=== PATIENT | female | born 1995 | race Caucasian/White ===

== ENCOUNTER 2018-06-24 17:59 | Emergency (ER) | payer BC, MEDICAID ==
[2018-06-24] MEDS ORDERED: HYOSCYAMINE SULFATE ODT 0.125 MG TAB.SUBL SL ONE (18:17)
[2018-06-24] MEDS ORDERED: ONDANSETRON HCL IV 4 MG/2 ML VIAL IVP ONE (18:17)
--- NOTE | 2018-06-24 18:21 | Emergency Department Record ---
History of Present Illness - General Stated Complaint: ABDOMINAL PAIN,NAUSEA Time Seen by Provider: 06/24/18 18:17 Source: Patient Mode of Arrival: Ambulatory Limitations: No limitations - History of Present Illness Initial Comments: 22 yo female presents to ED for evaluation of diffuse abdominal pain and nausea symptoms that began this morning. Patient denies fevers, chills, flank pain, or urinary symptoms. Patient denies vomiting symptoms but does repot several episodes of loose stools yesterday. Patient denies previous abdominal surgeries, does report a history of RA that she does not currently take any medications for. MD Complaint: Abdominal pain Onset/Timin -: Days(s) Location: Diffuse Radiation: None Severity: Moderate Quality: Cramping Consistency: Constant Improves With: Nothing Worsens With: Nothing Associated Symptoms: Nausea - Related Data Patient : No Home Medications Medication Instructions Recorded Confirmed Last Taken Amitriptyline HCl 25 mg PO DAILY 06/24/18 06/24/18 06/24/18 Previous Rx's Medication Instructions Recorded Hyoscyamine Sulfate [Levsin-Sl] 0.25 mg SL Q8H PRN #15 tab.subl 06/24/18 Ondansetron [Zofran Odt] 4 mg PO Q6H PRN #15 tab.rapdis 06/24/18 Allergies Allergy/AdvReac Type Severity Reaction Status Date / Time Sulfa (Sulfonamide Allergy SWOLLEN Verified 06/24/18 18:53 Antibiotics) EYES Review of Systems Constitutional: Denies: Chills, Fever, Malaise, Night sweats Eyes: Denies: Eye discharge, Eye pain ENT: Denies: Congestion, Ear pain, Epistaxis Respiratory: Denies: Cough, Dyspnea Cardiovascular: Denies: Chest pain, Dyspnea on exertion Endocrine: Denies: Fatigue, Heat or cold intolerance Gastrointestinal: Reports: Abdominal pain, Nausea. Denies: Constipation, Vomiting Genitourinary: Denies: Incontinence, Retention Musculoskeletal: Denies: Arthralgia, Back pain Skin: Denies: Bruising, Change in color Neurological: Denies: Abnormal gait, Confusion, Headache Psychiatric: Denies: Anxiety Hematological/Lymphatic: Denies: Anemia, Blood Clots Physical Exam - General General Appearance: Alert, Oriented x3, Cooperative, Moderate distress Limitations: No limitations - Head Head exam: Atraumatic, Normocephalic, Normal inspection Head exam detail: negative: Abrasion, Contusion, Moreno's sign, General tenderness, Hematoma, Laceration - Eye Eye exam: Normal appearance. negative: Conjunctival injection, Periorbital swelling, Periorbital tenderness, Scleral icterus - ENT Ear exam: negative: Auricular hematoma, Auricular trauma Nasal Exam: negative: Active bleeding, Discharge, Dried blood, Foreign body Mouth exam: negative: Drooling, Laceration, Muffled voice, Tongue elevation - Neck Neck exam: Normal inspection. negative: Meningismus, Tenderness - Respiratory Respiratory exam: Normal lung sounds bilaterally. negative: Respiratory distress, Rhonchi, Stridor, Wheezes - Cardiovascular Cardiovascular Exam: Regular rate, Normal rhythm, Normal heart sounds - GI/Abdominal GI/Abdominal exam: Soft, Tenderness (TTP RUQ, RLQ, and epigastric regions on examination.). negative: Rebound, Rigid - Rectal Rectal exam: Deferred - exam: Deferred - Extremities Extremities exam: Normal inspection. negative: Calf tenderness, Pedal edema, Tenderness - Back Back exam: Denies: CVA tenderness (R), CVA tenderness (L) - Neurological Neurological exam: Alert, Normal gait, Oriented X3 - Psychiatric Psychiatric exam: Normal affect, Normal mood - Skin Skin exam: Normal color. negative: Abrasion Type of lesion: negative: abrasion Course - Reevaluation(s) Reevaluation #1: 06/24/18 19:26 Laboratory studies were reviewed and appear grossly unremarkable for an acute process. Patient reports that her nausea symptoms have resolved, reports that her abdominal pain symptoms are significantly improved. CT imaging is pending at this time. Reevaluation #2: 06/24/18 19:45 CT Abdomen and Pelvis: Probable gallstones No evidence for acute cholecystitis Dominant cyst (2.9 cm) left IUD in place. Patient was updated on all results, patient reports that her pain symptoms are well controlled at this time. Will have the patient return tomorrow morning at 8:30 for 9:00 US of the abdomen for further evaluation. Patient is in agreement with the plan of care as discussed. Medical Decision Making - Lab Data Result diagrams: 06/24/18 18:37 06/24/18 18:37 Disposition Disposition: Discharge Clinical Impression: Abdominal pain Qualifiers: Abdominal location: right lower quadrant Qualified Code(s): R10.31 - Right lower quadrant pain Disposition: Home, Self-Care Condition: (2) Stable Instructions: Abdominal Pain (ED) Additional Instructions: Return to ED if your symptoms worsen or if you have any concerns. Zofran and Levsin as directed. Follow-up with your family doctor in 3-5 days as directed. Prescriptions: Hyoscyamine Sulfate [Levsin-Sl] 0.25 mg SL Q8H PRN #15 tab.subl PRN Reason: Abdominal Pain Ondansetron [Zofran Odt] 4 mg PO Q6H PRN #15 tab.rapdis PRN Reason: Nausea/Vomiting Time of Disposition: 19:48 Quality - Quality Measures Quality Measures: N/A - Blood Pressure Screening Does Patient Have Any of the Following: No Blood Pressure Classification: Normal BP Reading Systolic Measurement: 114 Diastolic Measurement: 63 Screening for High Blood Pressure: < Normal BP, F/U Not Required > [G8783]
[2018-06-24] MEDS ORDERED: 0.9 % SODIUM CHLORIDE 1000ML 1,000 ML IV SCH (18:30)
[2018-06-24 18:45] LABS: HEMATOCRIT 39.5 % (35.0-47.0); HEMOGLOBIN 13.9 gm/dl (11.6-16.0); MEAN CELL VOLUME 91.6 fl (81-97); MEAN CORPUSCULAR HEMOGLOBIN 32.3 pg (27-33); MEAN CORPUSCULAR HGB CONC 35.2 g/dl (32-36); MEAN PLATELET VOLUME 9.2 fl (7.4-10.4); PLATELET COUNT 258 K/uL (130-400); RED BLOOD COUNT 4.31 M/uL (3.80-5.40); RED CELL DISTRIBUTION WIDTH 11.6 % (11.5-14.5)
[2018-06-24 18:53] LABS: URINE APPEARANCE SL CLOUDY; URINE BILIRUBIN NEGATIVE (NEGATIVE); URINE BLOOD MODERATE (NEGATIVE); URINE COLOR YELLOW; URINE GLUCOSE (UA) NEGATIVE (NEGATIVE); URINE KETONE 15 mg/dL (NEGATIVE); URINE LEUKOCYTE ESTERASE TRACE (NEGATIVE); URINE NITRITE NEGATIVE (NEGATIVE); URINE PROTEIN NEGATIVE (NEGATIVE); URINE UROBILINOGEN 0.2 E.U./dL (0.20 - 1.00)
[2018-06-24 18:54] LABS: HCG,QUALITATIVE URINE NEGATIVE (NEGATIVE)
[2018-06-24 19:02] LABS: URINE BACTERIA 1+; URINE MUCUS LIGHT; URINE WBC 0 - 2 (0-2/hpf)
[2018-06-24 19:16] LABS: BLOOD UREA NITROGEN 9 mg/dL (6-20); CREATININE 0.5 mg/dL (0.5-0.9); EST GLOMERULAR FILTRATION RATE > 60 mL/min
[2018-06-24 19:17] LABS: TOTAL PROTEIN 7.9 g/dL (6.6-8.7)
[2018-06-24 19:19] LABS: GLUCOSE,RANDOM 103 mg/dL (74-109)
[2018-06-24 19:22] LABS: ALB/GLOB RATIO 1.5 (1.1-1.8); ALBUMIN 4.7 g/dL (4.0-5.0); ALKALINE PHOSPHATASE 46 U/L (35-104); ALT/SGPT 12 U/L (<33); AST/SGOT 15 U/L (10.0-35.0); LIPASE 33 U/L (13-60)
--- NOTE | 2018-06-25 20:32 | CT SCAN REPORT ---
EXAM: CT SCAN ABDOMEN/PELVIS W CONTRAST HISTORY: ABDOMINAL PAIN. TECHNIQUE: Helical CT scan of the abdomen and pelvis obtained after the administration of intravenous contrast, the type and amount specified in the patient's medical record. Oral contrast: None. COMPARISON: None. FINDINGS: Lung bases are clear. Liver, spleen, pancreas, adrenal glands are within normal limits. There is a linear area of hypodensity in the posterior lower right kidney, possibly a scar or focal inflammation. Left kidney is unremarkable. Normal contrast excretion in both kidneys. There are some densities in the gallbladder, which are probably stones. No abnormal gallbladder wall thickening. Common bile duct is not dilated, 3 mm. Bowel has normal caliber. Appendix is normal. A dominant follicle in the left ovary is 2.9 cm. The uterus is retroverted and an intrauterine device is present in appropriate position. Tiny amount of physiologic fluid in the pelvis. Bony structures and abdominal wall are unremarkable. IMPRESSION: 1. NO ACUTE ABNORMALITIES ARE IDENTIFIED IN THE ABDOMEN AND PELVIS. 2. LINEAR ABNORMALITY IN THE RIGHT KIDNEY MAY REPRESENT AN AREA OF INFLAMMATION VS. SCAR, CORRELATE WITH URINALYSIS. 3. PROBABLE GALLSTONES, CONSIDER CORRELATION WITH ULTRASOUND. 4. FINDINGS OF RECENT OVULATION FROM THE LEFT OVARY. JOB NUMBER: [id number] [facility]
== END 2018-06-24 19:59 | disposition home or self-care (01) ==
LOC: ER 17:59
DX: R10.31 Right lower quadrant pain (principal); R11.0 Nausea; M06.9 Rheumatoid arthritis, unspecified
CPT/HCPCS: 99284 ×2; 96374; 83690; 80053; 81001; 81025; 85027; 74177; Q9967; J1980; J2405; J7030

== ENCOUNTER 2018-06-25 08:14 | Emergency (ER) | payer BC, MEDICAID ==
[2018-06-25] MEDS ORDERED: HYOSCYAMINE SULFATE ODT 0.125 MG TAB.SUBL SL ONE (09:40)
[2018-06-25] MEDS ORDERED: MAGNESIUM HYDROXIDE/AL HYDROX 30 ML, LIDOCAINE VISC 2% 15ML 15 ML PO ONE ×2 (10:34)
--- NOTE | 2018-06-25 11:22 | Emergency Department Record ---
History of Present Illness - General Chief Complaint: Abdominal Pain Stated Complaint: ULTRASOUND Time Seen by Provider: 06/25/18 08:24 Source: Patient Mode of Arrival: Ambulatory Limitations: No limitations - History of Present Illness Initial Comments: pt here for [facility] after being seen by dr saeed in night. pt is still having pain MD Complaint: Abdominal pain Onset/Timin -: Days(s) Location: Epigastric Severity scale (1-10): 7 Improves With: Medication Worsens With: Nothing Associated Symptoms: Nausea - Related Data Patient : No Previous Rx's Medication Instructions Recorded Hyoscyamine Sulfate [Levsin-Sl] 0.25 mg SL Q8H PRN #15 tab.subl 06/24/18 Ondansetron [Zofran Odt] 4 mg PO Q6H PRN #15 tab.rapdis 06/24/18 Omeprazole [Prilosec] 20 mg PO DAILY #20 cap. 06/25/18 Allergies Allergy/AdvReac Type Severity Reaction Status Date / Time Sulfa (Sulfonamide Allergy SWOLLEN Verified 06/25/18 08:22 Antibiotics) EYES Travel Screening - Travel/Exposure Within Last 30 Days Have you traveled within the last 30 days?: No - Travel/Exposure Within Last Year Have you traveled outside the [place] in the last year?: No - Additonal Travel Details Have you been exposed to anyone with a communicable illness?: No - Travel Symptoms Symptom Screening: None Review of Systems Reviewed: No additional complaints except as noted below Constitutional: Reports: As per HPI. Denies: Chills, Fever, Malaise, Night sweats, Weakness, Weight change Eyes: Reports: As per HPI. Denies: Eye discharge, Eye pain, Photophobia, Vision change ENT: Reports: As per HPI. Denies: Congestion, Dental pain, Ear pain, Epistaxis , Hearing loss, Throat pain Respiratory: Reports: As per HPI. Denies: Cough, Dyspnea, Hemoptysis, Stridor, Wheezes Cardiovascular: Reports: As per HPI. Denies: Arrhythmia, Chest pain, Dyspnea on exertion, Edema, Murmurs, Orthopnea, Palpitations, Paroxysmal nocturnal dyspnea, Rheumatic Fever, Syncope Endocrine: Reports: As per HPI. Denies: Fatigue, Heat or cold intolerance, Polydipsia, Polyuria Gastrointestinal: Reports: As per HPI, Abdominal pain. Denies: Constipation, Diarrhea, Hematemesis, Hematochezia, Melena, Nausea, Vomiting Genitourinary: Reports: As per HPI. Denies: Abnormal menses, Discharge, Dyspareunia, Dysuria, Frequency, Hematuria, Incontinence, Retention, Urgency Musculoskeletal: Reports: As per HPI. Denies: Arthralgia, Back pain, Gout, Joint swelling, Myalgia, Neck pain Skin: Reports: As per HPI. Denies: Bruising, Change in color, Change in hair/ nails, Lesions, Pruritus, Rash Neurological: Reports: As per HPI. Denies: Abnormal gait, Confusion, Headache, Numbness, Paresthesias, Seizure, Tingling, Tremors, Vertigo, Weakness Psychiatric: Reports: As per HPI. Denies: Anxiety, Auditory hallucinations, Depression, Homicidal thoughts, Suicidal thoughts, Visual hallucinations Hematological/Lymphatic: Reports: As per HPI. Denies: Anemia, Blood Clots, Easy bleeding, Easy bruising, Swollen glands Past Medical History - SOCIAL HISTORY Smoking Status: Never smoker Alcohol Use: None Drug Use: None - RESPIRATORY Hx Respiratory Disorders: No - CARDIOVASCULAR Hx Cardio Disorders: No Comment:: murmur - NEURO Hx Neuro Disorders: No - GI Hx GI Disorders: No - Hx Genitourinary Disorders: Yes Hx UTI: Yes - ENDOCRINE Hx Endocrine Disorders: No - MUSCULOSKELETAL Hx Musculoskeletal Disorders: Yes Comment:: RA - PSYCH Hx Psych Problems: Yes Hx Anxiety: Yes - HEMATOLOGY/ONCOLOGY Hx Hematology/Oncology Disorders: No Family Medical History Any Significant Family History?: No Physical Exam - General General Appearance: Alert, Oriented x3, Cooperative, Mild distress - Head Head exam: Normal inspection - Eye Eye exam: Normal appearance, PERRL, EOMI Pupils: Normal accommodation - ENT ENT exam: Normal exam, Mucous membranes moist, Normal external ear exam, Normal orophraynx Ear exam: Normal external inspection. negative: External canal tenderness Nasal Exam: Normal inspection. negative: Discharge, Sinus tenderness Mouth exam: Normal external inspection, Tongue normal Teeth exam: Normal inspection. negative: Dental caries Throat exam: Normal inspection. negative: Tonsillar erythema, Tonsillar exudate - Neck Neck exam: Normal inspection, Full ROM. negative: Tenderness - Respiratory Respiratory exam: Normal lung sounds bilaterally. negative: Respiratory distress - Cardiovascular Cardiovascular Exam: Regular rate, Normal rhythm, Normal heart sounds - GI/Abdominal GI/Abdominal exam: Soft, Normal bowel sounds, Tenderness - Rectal Rectal exam: Deferred - exam: Deferred - Extremities Extremities exam: Normal inspection, Full ROM, Normal capillary refill. negative: Tenderness - Back Back exam: Reports: Normal inspection, Full ROM. Denies: Muscle spasm, Rash noted, Tenderness - Neurological Neurological exam: Alert, Normal gait, Oriented X3, Reflexes normal - Psychiatric Psychiatric exam: Normal affect, Normal mood - Skin Skin exam: Dry, Intact, Normal color, Warm Course Vital Signs 06/25/18 08:16 Temperature 98.2 F Pulse Rate 93 H Respiratory 20 Rate Blood Pressure 115/71 Pulse Ox 99 - Reevaluation(s) Reevaluation #1: 06/25/18 11:19 us is neg. pt back tender pulp drier. pt given gi cocktail which helped Disposition Disposition: Discharge Clinical Impression: Gastritis Qualifiers: Gastritis type: unspecified gastritis Chronicity: acute Gastritis bleeding: without bleeding Qualified Code(s): K29.00 - Acute gastritis without bleeding Disposition: Home, Self-Care Condition: (1) Good Instructions: Gastritis (ED) Additional Instructions: follow up with family doctor. return sooner if worse. no motrin. Prescriptions: Omeprazole [Prilosec] 20 mg PO DAILY #20 cap. Referrals: FELIPE JUNIOR [DOCTOR OF OSTEOPATH] - [facility] Specialty Clinics [Provider Group] Quality - Quality Measures Quality Measures: N/A - Blood Pressure Screening Does Patient Have Any of the Following: No Blood Pressure Classification: Normal BP Reading Systolic Measurement: 115 Diastolic Measurement: 71 Screening for High Blood Pressure: < Normal BP, F/U Not Required > [G8783]
--- NOTE | 2018-06-25 20:52 | ULTRASOUND REPORT ---
EXAM: ULTRASOUND ABDOMEN, COMPLETE HISTORY: RIGHT-SIDED ABDOMINAL PAIN. TECHNIQUE: Sonographic evaluation of the abdomen was performed using anderson- scale imaging. FINDINGS: The liver appears homogeneous. No gallstones or ductal dilatation. The common bile duct measures 2 mm. The pancreas and spleen appear normal. The kidneys are normal in size with no hydronephrosis or nephrolithiasis. The abdominal aorta and inferior vena cava are patent. IMPRESSION: NO GALLSTONES OR DUCTAL DILATATION. THE EXAMINATION IS UNREMARKABLE. JOB NUMBER: [id number] [facility]
== END 2018-06-25 11:31 | disposition home or self-care (01) ==
LOC: ER 08:14
DX: K29.00 Acute gastritis without bleeding (principal); R10.13 Epigastric pain; R11.0 Nausea
CPT/HCPCS: 99281 ×2; 76700; J1980